=== PATIENT | female | born 1995 ===

== ENCOUNTER 2018-05-20 10:13 | Emergency (ER) | payer SELFPAY ==
[2018-05-20 10:29] VITALS: BP 116/71
--- NOTE | 2018-05-20 10:37 | UC ---
Complaint Female HPI - HPI Summary HPI Summary: Patient urgent care today with 2 days of suprapubic pain right flank pain pain and burning with urination. Patient has some nausea but no vomiting no fevers or chills - History Of Current Complaint Chief Complaint: UCBackPain Stated Complaint: ABD AND BACK PAIN Time Seen by Provider: 05/20/18 10:31 Hx Obtained From: Patient Hx Last Menstrual Period: 05/16/18 ?: No Onset/Duration: Sudden Onset, Lasting Days - 2, Still Present Timing: Constant Pain Intensity: 8 Pain Scale Used: 0-10 Numeric Character: Burning Aggravating Factor(s): Urination Alleviating Factor(s): Nothing Associated Signs And Symptoms: Positive: Back Pain, Nausea - Allergies/Home Medications Allergies/Adverse Reactions: Allergies Allergy/AdvReac Type Severity Reaction Status Date / Time No Known Allergies Allergy Verified 05/20/18 10:29 Home Medications: Home Medications NK [No Home Medications Reported] 05/20/18 [History Confirmed 05/20/18] PMH/Surg Hx/FS Hx/Imm Hx Previously Healthy: Yes - Surgical History Surgical History: None - Family History Known Family History: Positive: None - Social History Occupation: Employed Full-time Lives: With Family Alcohol Use: Occasionally Substance Use Type: None Smoking Status (MU): Current Every Day Smoker Have You Smoked in the Last Year: Yes Cessation Counseling: Counseled 3+Min - 10 Min Review of Systems Constitutional: Negative Skin: Negative Eyes: Negative ENT: Negative Respiratory: Negative Cardiovascular: Negative Gastrointestinal: Abdominal Pain - and right flank pain, Nausea Genitourinary: Dysuria, Frequency, Urgency Motor: Negative Neurovascular: Negative Musculoskeletal: Negative Neurological: Negative Psychological: Negative Is Patient Immunocompromised?: No All Other Systems Reviewed And Are Negative: Yes Physical Exam Triage Information Reviewed: Yes Appearance: Well-Nourished, Ill-Appearing - mld, Pain Distress - mild Vital Signs: Initial Vital Signs Temp 97.8 F 05/20/18 10:25 Pulse 54 05/20/18 10:25 Resp 16 05/20/18 10:25 BP 116/71 05/20/18 10:25 Pulse Ox 100 05/20/18 10:25 Vital Signs Reviewed: Yes Eye Exam: Normal Eyes: Positive: Conjunctiva Clear ENT Exam: Normal ENT: Positive: Normal ENT inspection, Hearing grossly normal. Negative: Muffled voice, Hoarse voice, Dental tenderness Dental Exam: Normal Neck exam: Normal Neck: Positive: Supple, Nontender Respiratory Exam: Normal Respiratory: Positive: Chest non-tender, No respiratory distress, No accessory muscle use Cardiovascular Exam: Normal Cardiovascular: Positive: RRR, Pulses Normal, Brisk Capillary Refill Abdominal Exam: Normal Abdomen Description: Positive: No Organomegaly, Soft, CVA Tenderness (R), Other : - suprapubic pain. Negative: CVA Tenderness (L), Distended, Guarding, Hepatomegaly, McBurney's Point Tenderness Bowel Sounds: Positive: Present Musculoskeletal Exam: Normal Musculoskeletal: Positive: Strength Intact, ROM Intact Neurological Exam: Normal Neurological: Positive: Alert, Muscle Tone Normal Psychological Exam: Normal Skin Exam: Normal Diagnostics - Laboratory Diagnostic Studies Completed/Ordered: ua +3 blood, urine preg positive - Radiology No standard instances Xray Interpretation: Positive (See Comments) - Patient Name: GILA ACOSTA Medical Record#: [id number] Ordering Physician: Adelia Romeo TABLE LEVER OPERATOR Acct.#: [id number] : 1994 Age: 23 Sex: F Location: [facility] Exam Date: 05/20/18 1049 ADM Status : REG ER Order Information: US PREG TRANSVAGINAL Accession Number: [id number] CPT: 35266 INDICATION: Pelvic pain, bleeding, positive test. COMPARISON: There are no prior studies available for comparison. TECHNIQUE: Multiple real-time transvaginal images of the pelvis were obtained. FINDINGS: The uterus is normal in size shape and echogenicity measuring 6.8 x 3.2 x 3.7 cm. The endometrial echo measures 1.0 cm in thickness. There are small nabothian cysts. No intrauterine gestational sac is seen. The left ovary measured 3.4 x 1.2 x 2.6 cm. The right ovary measured 3.7 x 2.7 x 2.4 cm in size. There is vascular flow within both ovaries. Between the uterus and right ovary there is a hyperechoic mass measuring 2.7 x 2.8 cm in size suspicious for an area of hemorrhage. There is a moderate amount of complex free intraperitoneal fluid. The results of this exam were discussed with the referring clinician. IMPRESSION: NO INTRAUTERINE GESTATIONAL SAC IS SEEN. THERE IS A HYPERECHOIC AREA BETWEEN THE UTERUS AND RIGHT OVARY SUSPICIOUS FOR HEMORRHAGE AND A MODERATE AMOUNT OF COMPLEX FREE INTRAPERITONEAL FLUID. THESE FINDINGS ARE NONSPECIFIC ALTHOUGH SUSPICIOUS FOR A RUPTURED ECTOPIC . <Electronically signed by Rogers Priest MD in OV> 05/20/18 1205 Dictated By: Rogers Priest MD Dictated Date/Time: 05/20/18 1205 Transcribed Date/Time: 05/20/18 1149 Copy to: CC:Adelia Romeo TABLE LEVER OPERATOR; No Primary Care Phys,NOPCP; Jack Joseph MD Imaging - [facility] Imaging - [facility] Imaging [facility] [address] [address] ph ([phone]) ph ([phone]) ph ) 1 of 1 Radiology Interpretation Completed By: Radiologist Complaint Female Dx - Course Course Of Treatment: npo, to [facility] ED For further evaluation and surgical intervention for treament of ectopic - Differential Dx/Diagnosis Provider Diagnoses: Ruptured ectopic - Physician Notifications Discussed Patient Care With: Felipe Torres Time Discussed With Above Provider: 12:00 Discharge - Sign-Out/Discharge Documenting (check all that apply): Discharge/Admit/Transfer - Discharge Plan Condition: Fair Disposition: HOME Discharge Disposition Comment: to [facility] by private car (patient preference) for treament of ectopic pregnanc Patient Education Materials: Ectopic (DC), How to Stop Smoking (ED) Referrals: No Primary Care Phys,NOPCP [Primary Care Provider] - Additional Instructions: NOTHING TO EAT OR DRINK GO DIRECTLY TO THE EMERGENCY DEPARTMENT AT [facility] - Billing Disposition and Condition Condition: FAIR Disposition: Home
--- NOTE | 2018-05-20 12:08 | RAD ---
INDICATION: Pelvic pain, bleeding, positive test. COMPARISON: There are no prior studies available for comparison. TECHNIQUE: Multiple real-time transvaginal images of the pelvis were obtained. FINDINGS: The uterus is normal in size shape and echogenicity measuring 6.8 x 3.2 x 3.7 cm. The endometrial echo measures 1.0 cm in thickness. There are small nabothian cysts. No intrauterine gestational sac is seen. The left ovary measured 3.4 x 1.2 x 2.6 cm. The right ovary measured 3.7 x 2.7 x 2.4 cm in size. There is vascular flow within both ovaries. Between the uterus and right ovary there is a hyperechoic mass measuring 2.7 x 2.8 cm in size suspicious for an area of hemorrhage. There is a moderate amount of complex free intraperitoneal fluid. The results of this exam were discussed with the referring clinician. IMPRESSION: NO INTRAUTERINE GESTATIONAL SAC IS SEEN. THERE IS A HYPERECHOIC AREA BETWEEN THE UTERUS AND RIGHT OVARY SUSPICIOUS FOR HEMORRHAGE AND A MODERATE AMOUNT OF COMPLEX FREE INTRAPERITONEAL FLUID. THESE FINDINGS ARE NONSPECIFIC ALTHOUGH SUSPICIOUS FOR A RUPTURED ECTOPIC .
== END 2018-05-20 12:11 | disposition home or self-care (01) ==
LOC: UCEAST 10:13
DX: O00.90 Unspecified ectopic pregnancy without intrauterine pregnancy (principal); F17.200 Nicotine dependence, unspecified, uncomplicated
CPT/HCPCS: 76817; 81003; 84702; 99202; G0463

== ENCOUNTER 2018-05-20 12:31 | Day surgery (SDC) | payer SELFPAY ==
--- NOTE | 2018-05-20 13:08 | ED ---
Abdominal Pain/Female - HPI Summary HPI Summary: Patient presents from [facility] care with right-sided hemorrhage and adnexa concerning for ectopic . She reports she's had pain in this area over the past week which got much worse this morning causing her to leave work to go to [facility] care. She uses oral control but is sexually active. Was unaware that she could be . Last muscle. Started May 09 and she reports she's been bleeding since which is not normal for her. She typically has. Once a month which lasts for the same amount of time and about the same flow. She denies trauma to the area. Additionally, she denies fevers, chills, chest pain, shortness of breath, vomiting, diarrhea. She has had some mild nausea. Denies previous . She is unsure of her blood type. Last meal: toast @ 7 AM No dental work No cardiac, blood or pulmonary pathologies although partner reports she snores most nights - no known h/o allergies/tonsilitis/adenoiditis Smokes 1/4 PPD Drinks ETOH occasionally Denies illicit drug use No h/o previous surgery - History of Current Complaint Chief Complaint: EDOBProblems Stated Complaint: ABD PAIN Time Seen by Provider: 05/20/18 12:49 Hx Obtained From: Patient, Family/Automotive Electrician - male partner Hx Last Menstrual Period: 05/16/18 Pain Intensity: 7 Allergies/Adverse Reactions: Allergies Allergy/AdvReac Type Severity Reaction Status Date / Time No Known Allergies Allergy Verified 05/20/18 12:38 PMH/Surg Hx/FS Hx/Imm Hx Previously Healthy: Yes Endocrine/Hematology History: Denies: Hx Anticoagulant Therapy, Hx Blood Disorders, Hx Diabetes, Hx Anemia , Hx Unexplained Bleeding, Autoimmune Disease Cardiovascular History: Denies: Hx Congenital Heart Disease Respiratory History: Denies: Hx Asthma, Hx Sleep Apnea GI History: Denies: Hx Gastrointestinal Bleed Infectious Disease History: No Infectious Disease History: Denies: Traveled Outside the [place] in Last 30 Days - Family History Known Family History: Positive: None - Social History 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 Negative: Vomiting, Diarrhea Positive: see HPI Musculoskeletal: Negative Skin: Negative Neurological: Negative Psychological: Normal All Other Systems Reviewed And Are Negative: Yes Physical Exam Triage Information Reviewed: Yes Vital Signs On Initial Exam: Initial Vitals Temp Pulse Resp BP Pulse Ox 98.7 F 60 20 113/77 99 05/20/18 12:33 05/20/18 12:33 05/20/18 12:33 05/20/18 12:33 05/20/18 12:33 Vital Signs Reviewed: Yes Appearance: Positive: Well-Appearing, Well-Nourished, Pain Distress - mild - reports 6/10 - sitting on bed with knees tucked into chest; male partner is present Skin: Positive: Warm, Skin Color Reflects Adequate Perfusion, Dry Head/Face: Positive: Normal Head/Face Inspection Eyes: Positive: EOMI ENT: Positive: Hearing grossly normal, Pharynx normal - mucosa moist Neck: Positive: Supple Respiratory/Lung Sounds: Positive: Clear to Auscultation, Breath Sounds Present Cardiovascular: Positive: Normal, RRR, S1, S2. Negative: Murmur, Rub Abdomen Description: Positive: No Organomegaly, Soft, Other: - Rt side pain - mild rebounding. Negative: CVA Tenderness (R), CVA Tenderness (L), Distended, Guarding Bowel Sounds: Positive: Present Pelvic Exam: Positive: External Exam Normal, Other - dark blood in vaginal canal w/ speculum exam - cervix and os not visualized nor investigated Musculoskeletal: Positive: Normal, Strength/ROM Intact Neurological: Positive: Normal, Sensory/Motor Intact, Alert, Oriented to Person Place, Time, CN Intact II-III Psychiatric: Positive: Anxious - appears concerned but calm and cooperative Diagnostics - Vital Signs Vital Signs Temp Pulse Resp BP Pulse Ox 05/20/18 12:33 98.7 F 60 20 113/77 99 - Laboratory Result Diagrams: 05/20/18 13:05 05/20/18 13:05 Lab Statement: Any lab studies that have been ordered have been reviewed, and results considered in the medical decision making process. Re-Evaluation - Re-Evaluation First Eval Change: Improved Abdominal Pain Fem Course/Dx - Course Course Of Treatment: Patient's transvaginal ultrasound report "no intrauterine gestational sac is seen. There is hyperechoic area between the uterus and the right ovary suspicious for hemorrhagic and a moderate amount of complex free intraperitoneal fluid. These findings are nonspecific although suspicious for ruptured ectopic .". Pt's hcg 834.36. Other labs and vitals are stable. A+ blood type - no rhogam admininstered. Ruptured ectopic vs. ruptured hemorrhagic cyst with possible early . Placed call to OBGYN. Spoke w/ Dr. Segura who will take pt to OR. Pt in stable condition at time of transition of care. - Diagnoses Differential Diagnosis: Positive: Ectopic , Other - ruptured hemorrhagic cyst Provider Diagnoses: RLQ abdominal pain Discharge - Sign-Out/Discharge Documenting (check all that apply): Discharge/Admit/Transfer - Discharge Plan Condition: Stable Disposition: ADMITTED TO [facility] - Billing Disposition and Condition Condition: STABLE Disposition: Admitted to [facility]
[2018-05-20] MEDS ORDERED: Morphine VIAL* 4 MG/ML VIAL (1 ml vial) IV ONE ×2 (13:09→14:41)
[2018-05-20] MEDS ORDERED: Ondansetron INJ* 2 MG/ML VIAL IV ONE (13:09)
[2018-05-20 13:18] LABS: ABS Basophils 0.1 10^3/ul (0-0.2); ABS Eosinophils 0.2 10^3/ul (0-0.6); ABS Lymphocytes 2.2 10^3/ul (1.0-4.8); ABS Monocytes 0.5 10^3/ul (0-0.8); ABS Neutrophils 7.8 10^3/ul (1.5-7.7); ABS Nucleated RBC 0 10^3/ul; Eosinophil % 1.4 % (0-6); Hematocrit 38 % (35-47); Hemoglobin 12.9 g/dl (12.0-16.0); Lymphocyte % 20.4 % (25-47); Mean Corpuscular HGB Conc 34 g/dl (31-36); Mean Corpuscular Hemoglobin 32 pg (27-31); Mean Corpuscular Volume 92 fL (80-97); Mean Platelet Volume 8.7 um3 (7.4-10.4); Nucleated Red Blood Cells % 0.1; Platelet Count 266 10^3/ul (150-450); Red Blood Count 4.09 10^6/ul (4.00-5.40); Red Cell Distribution Width 13 % (10.5-15); White Blood Count 10.7 10^3/ul (3.5-10.8)
[2018-05-20 13:23] LABS: INR 1.01 (0.77-1.02)
[2018-05-20] MEDS ORDERED: NS 0.9% 1000 ML*IV.FLUID IV ONE (13:32)
[2018-05-20 13:36] LABS: EGFR Non-African American 100.3 (>60)
[2018-05-20] MEDS ORDERED: Midazolam* 1 MG/ML 5 ML VIAL (5 MG) ONE (14:16)
[2018-05-20] MEDS ORDERED: fentaNYL* 50 MCG/ML 2 ML VIAL (100 MCG VIAL) ONE (14:16)
[2018-05-20] MEDS ORDERED: Bupivacaine 0.5% PF 10 ML VIAL INJ ONE (14:56)
[2018-05-20] MEDS ORDERED: Dexamethasone IV* 4 MG/ML 1 ML (4 MG) ONE (15:43)
[2018-05-20] MEDS ORDERED: Succinylcholine* 20 MG/ML 10 ML VIAL ONE (15:43)
[2018-05-20] MEDS ORDERED: DiMENhydriNATE IV* 50 MG/ML VIAL ONE (15:43)
[2018-05-20] MEDS ORDERED: Ketorolac INJ* 30 MG/ML 1 ML VIAL ONE (15:43)
[2018-05-20] MEDS ORDERED: Propofol* 10 MG/ML 20 ML BTL IV PUSH ONE (15:43)
[2018-05-20] MEDS ORDERED: Lidocaine 2% PF * 5 ML VIAL ONE (15:43)
[2018-05-20] MEDS ORDERED: oxyCODONE TAB* 5 MG TAB PO PRN (16:54)
[2018-05-20] MEDS ORDERED: Ondansetron INJ* 2 MG/ML VIAL IV PRN (16:54)
[2018-05-20] MEDS ORDERED: Acetaminophen TAB* 325 MG PO PRN (16:54)
[2018-05-20] MEDS ORDERED: Naloxone* 0.4 MG/ML 1 ML VIAL IV PRN (16:54)
--- NOTE | 2018-05-20 16:57 | HP ---
H&P (Free Text) History and Physical: HPI: pt c/o minimal RLQ pain off and on for the past week but it got worse this am. She says it gradually became worse and radiated into her back and across her abdomen. Minimal nausea but no vomiting. Went to [facility] care and then sent to ED with suspected ruptured ectopic on sono. Pt has never been . She has been taking OCPs and denies missing a pill. Says she got a normal period on May 09 but it never stopped so after 7 days she did not start her next pill pack. The period before that was normal. She did not know that she was . 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 PE Gen: NAD, comfortable in bed (had received morphine 30min prior) Abd: mildly tender throughout but more so in RLQ. Pelvic exam done by PA - some blood noted in vagina VSS, labs wnl Sono: mod complex fluid in pelvis c/w blood. No intrauterine . Normal appearing ovaries without any obvious mass. Assessment/Plan: hemoperitoneum and abdominal pain - suspicious for ectopic vs rupture hemorrhagic cyst. Discussed observation and reassessment for further bleeding vs surgical management and pt opts for surgical management. Reviewed risks of surgery including bleeding, infection, pain, injury to nearby organs. Pt agrees, consent signed and questions answered.
[2018-05-20] MEDS ORDERED: HYDROmorphone INJ* 0.5 MG/0.5 ML SYRINGE ONE ×2 (17:03→17:25)
[2018-05-20] MEDS: HYDROmorphone INJ* 0.5 MG/0.5 ML SYRINGE IV PRN ×3 (17:04→17:32)
[2018-05-20] MEDS ORDERED: oxyCODONE TAB* 5 MG TAB ONE (17:25)
[2018-05-20] MEDS ORDERED: Acetaminophen TAB* 325 MG ONE (17:25)
[2018-05-20 18:02] VITALS: BP 127/87
--- NOTE | 2018-05-21 05:03 | OP ---
DATE OF OPERATION: 05/20/18 - [facility] DATE OF : [birth year] SURGEON: Heaven Segura MD WINDOWS VMWARE ENGINEER: YONNY Cortez PRE-OP DIAGNOSES: Hemoperitoneum, right lower quadrant pain, and possible ectopic . POST-OP DIAGNOSES: Right tubal ectopic and hemoperitoneum. OPERATIVE PROCEDURE: ESTIMATED BLOOD LOSS: Minimal. FLUIDS: Crystalloid. FINDINGS: Edematous right tube with suspected ectopic inside, normal- appearing left tube and ovaries and uterus. Normal-appearing liver and bowel on brief survey. COMPLICATIONS: None. COUNTS: All correct. SPECIMEN: Right tube and ectopic . DESCRIPTION OF PROCEDURE: After informed consent was signed, the patient was taken to the operating room where she was given general anesthesia that was found to be adequate. She was prepped and draped in the dorsal lithotomy position in the [facility]. A time-out was performed. A sponge stick was placed into the vagina to act as a uterine manipulator. The infraumbilical fold was then grasped and injected with 5% Marcaine. A 10 mm incision was made with a scalpel and carried down to the underlying layer of fascia with blunt dissection. The fascia was grasped with Evelyne clamps, tented up, and incised with the scalpel. A 0 Vicryl stay suture was placed to either side of the fascial incision. Peritoneum was then entered bluntly and the trocar was inserted, the camera was inserted into the port and entry into the abdominal cavity was confirmed. Inspection of the pelvis and abdomen revealed the previously mentioned findings. Two lateral ports were placed then, 5 mm in length and trocars were inserted. The patient was placed in Trendelenburg and the right tube was grasped. The LigaSure device was used to clamp, cauterize, and cut through the mesosalpinx and then across the proximal end of the tube until it was completely detached. The camera was then switched to a 5 mm camera. The 10 mm EndoCatch bag was inserted and the specimen was placed into the bag. It was then removed from the abdominal cavity. The abdomen was irrigated and suctioned. Good hemostasis was noted at the pedicle. Minimal blood was left remaining in abdomen. The lateral ports were then removed under direct visualization and the umbilical port was removed. The fascia was closed with a stay suture and a figure-of-8 suture. The skin was then closed with 4-0 Vicryl in a subcuticular fashion. Mastisol and Steri-Strips were placed. The patient was cleaned, placed back in supine position, awaken from anesthesia, and taken to the recovery room in stable condition. [id number]/[facility] #: [id number] MTDD
== END 2018-05-20 18:13 | disposition home or self-care (01) ==
LOC: ED 12:31 → OR 14:57
PROVIDERS: ATTEND Obstetrics & Gynecology
DX: O00.101 Right tubal pregnancy without intrauterine pregnancy (principal); K66.1 Hemoperitoneum; Z72.0 Tobacco use
CPT/HCPCS: 36415; 80053; 83605; 84702; 85025; 85610; 85730; 86140; 86850; 86900; 86901; 87040; 88305; 96374; 96375; 99283; A9270-GY; J0330; J1100; J1170; J1240; J1885; J2250; J2270; J2405; J2704; J3010